=== PATIENT | male | born 1990 ===

== ENCOUNTER 2019-07-15 23:57 | Emergency (ER) | payer SELFPAY ==
[~2019-07-15] VITALS: Ht 167.6 cm; Wt 54.5 kg
[2019-07-16 00:05] VITALS: BP 107/76; TEMP 98.1
[2019-07-16] MEDS ORDERED: AMOXICILLIN 50500 MG PO (02:03)
[2019-07-16] MEDS ORDERED: NORCO 325 MG-51 TAB PO (02:03)
[2019-07-16 02:46] VITALS: PULSE 79
== END 2019-07-16 02:27 | disposition home or self-care (01) ==
LOC: COL.ER 23:57
DX: S06.0X0A Concussion without loss of consciousness, initial encounter (principal); S02.2XXA Fracture of nasal bones, initial encounter for closed fracture; R40.2412 Glasgow coma scale score 13-15, at arrival to emergency department; Y04.2XXA Assault by strike against or bumped into by another person, initial encounter; Y92.009 Unspecified place in unspecified non-institutional (private) residence as the place of occurrence of the external cause; Y07.499 Other family member, perpetrator of maltreatment and neglect

== ENCOUNTER 2020-08-23 17:58 | Emergency (ER) | payer SELFPAY ==
[~2020-08-23] VITALS: Ht 167.6 cm; Wt 59.1 kg
[~2020-08-23 17:58] MED LIST: AMOXICILLIN 50500 MG PO; NORCO 325 MG-51 TAB PO
[2020-08-23 18:17] VITALS: BP 127/66; TEMP 99
[2020-08-23 20:37] VITALS: PULSE 108
== END 2020-08-23 20:37 | disposition home or self-care (01) ==
LOC: COL.ER 17:58
DX: S63.065A Dislocation of metacarpal (bone), proximal end of left hand, initial encounter (principal); W01.0XXA Fall on same level from slipping, tripping and stumbling without subsequent striking against object, initial encounter; Y93.19 Activity, other involving water and watercraft

== ENCOUNTER 2021-11-02 18:30 | Emergency (ER) | payer SELFPAY ==
[~2021-11-02] VITALS: Ht 165.1 cm; Wt 63.6 kg
[2021-11-02 18:36] VITALS: TEMP 98.4
[2021-11-02] MEDS ORDERED: AMOXICILLIN 8751 TAB PO (18:58)
[2021-11-02 19:12] VITALS: BP 107/65; PULSE 99
== END 2021-11-02 19:12 | disposition home or self-care (01) ==
LOC: COL.ER 18:30
DX: K05.30 Chronic periodontitis, unspecified (principal); Z28.310 Unvaccinated for COVID-19